=== PATIENT | male | born 1970 | race African-American/Black ===

== ENCOUNTER 2025-01-31 07:38 | Inpatient (IN) | payer BC ==
[2025-01-31] MEDS ORDERED: ACETAMINOPHEN INJECTION 100 ML ONE (08:32)
[2025-01-31] MEDS: ACETAMINOPHEN 1000 MG/100 ML BAG IVPB ONE (08:40)
[2025-01-31 08:55] LABS: ABSOLUTE IMMATURE GRANULOCYTES 0.05 x10^3/uL (0.0-0.031); BASOPHILS # 0.04 x10^3/uL (0.01-0.08); EOSINOPHIL % 0.0 % (0.8-7.0); EOSINOPHILS # 0.00 x10^3/uL (0.04-0.54); MCHC 35.6 g/dl (32.3-36.5); MEAN CELL VOLUME 88.5 fl (79.0-92.2); MEAN PLT VOLUME 9.9 fl (9.4-12.4); MONOCYTE # 1.59 x10^3/uL (0.30-0.82); MONOCYTE % 12.4 % (5.3-12.2); RDW 16.7 % (12.2-16.1)
[2025-01-31 09:03] LABS: INR 1.28 (0.83-1.09); PROTHROMBIN TIME (PATIENT) 14.0 SEC (9.7-13.0)
[2025-01-31 09:05] LABS: ACTIVATED PTT 29.4 SECONDS (25.2-36.5)
[2025-01-31 09:40] LABS: GLUCOSE,RANDOM 124.0 mg/dL (74-106)
[2025-01-31] MEDS ORDERED: FUROSEMIDE 40 MG TABLET (FP) ONE (09:40)
[2025-01-31 09:41] LABS: CO2 24.0 mmol/L (21-32)
[2025-01-31] MEDS ORDERED: SACUBITRIL/VALSARTAN 24 MG-26 MG TABLET ONE (09:41)
[2025-01-31 09:43] LABS: ALK PHOS 73.0 U/L (40-150)
[2025-01-31] MEDS: FUROSEMIDE 40 MG TABLET (FP) PO ONE (09:45)
[2025-01-31] MEDS: SACUBITRIL/VALSARTAN 24 MG-26 MG TABLET PO ONE (09:45)
[2025-01-31 09:46] LABS: CREATININE 0.85 mg/dL (0.55-1.3); SGOT/AST 15.0 U/L (5-34); SGPT/ALT 10.0 U/L (0-55)
[2025-01-31] MEDS ORDERED: KETOROLAC TROMETHAMINE 15 MG/ML VIAL ONE (09:53)
[2025-01-31] MEDS: KETOROLAC TROMETHAMINE 30 MG/1 ML VIAL IVPUSH ONE (09:55)
[2025-01-31 10:48] LABS: TOT PROT 6.4 g/dl (6.4-8.2)
[2025-01-31 10:52] LABS: URINE APPEARANCE CLEAR; URINE BILIRUBIN NEGATIVE (NEGATIVE); URINE COLOR DK YELLOW; URINE GLUCOSE (UA) NEGATIVE (NEGATIVE); URINE KETONE NEGATIVE (NEGATIVE); URINE LEUK ESTERASE TRACE (NEGATIVE); URINE NITRITE NEGATIVE (NEGATIVE); URINE PROTEIN TRACE (NEGATIVE); URINE UROBILINOGEN 1.0 mg/dL (0.2-1.0)
[2025-01-31 10:58] LABS: N-TERMINAL BNP 5667.4 pg/mL (0-299.9)
[2025-01-31] MEDS ORDERED: CEFEPIME HCL 2 GM VIAL (RESTRICTED TO ID) IVPB ONE (11:12)
[2025-01-31] MEDS ORDERED: CEFEPIME HCL/D5W 2 GM/50 ML BAG IVPB ONE (11:39)
[2025-01-31] MEDS: CEFEPIME 2 GM in DEXTROSE 5%-WATER 100 ML IVPB ONE (11:48)
[2025-01-31] MEDS: VANCOMYCIN PREMIX 1.75 GM 1,750 MG/350 ML PIGGYBACK IVPB ONE (14:08)
[2025-01-31 17:10] VITALS: BMI 29.4
[2025-01-31] MEDS: PIPERACILLIN/TAZOB 3.375 GM 3.375 GM in DEXTROSE 5%-WATER - 50 ML IVPB SCH (18:18)
[2025-01-31] MEDS ORDERED: PIPERACILLIN/TAZOB 3.375 GM 3.375 GM in DEXTROSE 5%-WATER - 50 ML IVPB SCH (20:00)
[2025-01-31] MEDS: SACUBITRIL/VALSARTAN 24 MG-26 MG TABLET PO SCH (21:11)
[2025-01-31] MEDS: DOXYCYCLINE INJECTION 100 MG in DEXTROSE 5%-WATER 100 ML IVPB SCH (21:11)
[2025-01-31] MEDS: FLUTICASONE PROP 0.05% 16 GM NASAL SPRAY NS PRN (22:19)
[2025-02-01 00:37] LABS: HCV DIAGNOSTIC IN-HOUSE W/RFLX NON-REACTIVE (NONREACTIVE); HEPATITIS B SURF AG NON-MATERN NON-REACTIVE (NONREACTIVE)
[2025-02-01 08:35] LABS: ABSOLUTE IMMATURE GRANULOCYTES 0.05 x10^3/uL (0.0-0.031); BASOPHILS # 0.05 x10^3/uL (0.01-0.08); EOSINOPHIL % 0.2 % (0.8-7.0); EOSINOPHILS # 0.02 x10^3/uL (0.04-0.54); MCHC 36.5 g/dl (32.3-36.5); MEAN CELL VOLUME 87.1 fl (79.0-92.2); MEAN PLT VOLUME 10.9 fl (9.4-12.4); MONOCYTE # 1.66 x10^3/uL (0.30-0.82); MONOCYTE % 12.9 % (5.3-12.2); RDW 16.1 % (12.2-16.1)
[2025-02-01] MEDS ORDERED: KETOROLAC TROMETHAMINE 15 MG/ML VIAL IVPUSH PRN (08:39)
[2025-02-01] MEDS: ACETAMINOPHEN 1000 MG/100 ML BAG IVPB PRN (08:49)
[2025-02-01 08:57] LABS: TOT PROT 5.6 g/dl (6.4-8.2)
[2025-02-01 09:00] LABS: ALK PHOS 64.0 U/L (40-150)
[2025-02-01 09:03] LABS: SGOT/AST 12.0 U/L (5-34); SGPT/ALT 8.0 U/L (0-55)
[2025-02-01 09:04] LABS: GLUCOSE,RANDOM 91.0 mg/dL (74-106)
[2025-02-01 09:06] LABS: CO2 23.0 mmol/L (21-32)
[2025-02-01 09:10] LABS: CREATININE 0.87 mg/dL (0.55-1.3)
[2025-02-01] MEDS: ENOXAPARIN NA (PORCINE) 40 MG/0.4 ML DISP.SYRIN SQ SCH (09:31)
[2025-02-01] MEDS: FUROSEMIDE 40 MG TABLET (FP) PO SCH (09:32)
[2025-02-01] MEDS: LIDOCAINE 4% PATCH TP SCH (11:45)
[2025-02-01] MEDS: LIDOCAINE PATCH REMOVAL MC SCH (21:03)
[2025-02-02 09:18] LABS: ABSOLUTE IMMATURE GRANULOCYTES 0.03 x10^3/uL (0.0-0.031); BASOPHILS # 0.04 x10^3/uL (0.01-0.08); EOSINOPHIL % 1.0 % (0.8-7.0); EOSINOPHILS # 0.09 x10^3/uL (0.04-0.54); MCHC 36.7 g/dl (32.3-36.5); MEAN CELL VOLUME 88.4 fl (79.0-92.2); MEAN PLT VOLUME 10.6 fl (9.4-12.4); MONOCYTE # 1.13 x10^3/uL (0.30-0.82); MONOCYTE % 11.9 % (5.3-12.2); RDW 16.3 % (12.2-16.1)
[2025-02-02 09:42] LABS: GLUCOSE,RANDOM 90.0 mg/dL (74-106); TOT PROT 5.6 g/dl (6.4-8.2)
[2025-02-02 09:43] LABS: CO2 25.0 mmol/L (21-32)
[2025-02-02 09:45] LABS: ALK PHOS 60.0 U/L (40-150)
[2025-02-02 09:48] LABS: CREATININE 0.89 mg/dL (0.55-1.3); SGOT/AST 11.0 U/L (5-34); SGPT/ALT 8.0 U/L (0-55)
[2025-02-02 13:55] VITALS: BP 117/76; PULSE 66; RESP 18; TEMP 98.6
== END 2025-02-02 15:55 | disposition home or self-care (01) | DRG 194 ==
LOC: JER 07:38 → JERBED 11:19 → J6S 14:34
PROVIDERS: ADMIT Internal Medicine; ATTEND Internal Medicine
DX: J18.9 Pneumonia, unspecified organism (principal); I50.22 Chronic systolic (congestive) heart failure; I11.0 Hypertensive heart disease with heart failure; I25.10 Atherosclerotic heart disease of native coronary artery without angina pectoris; E80.6 Other disorders of bilirubin metabolism; J43.9 Emphysema, unspecified; D64.9 Anemia, unspecified; F17.210 Nicotine dependence, cigarettes, uncomplicated
CPT/HCPCS: 36415; 71046-TC-FY; 71250-TC; 74176-TC; 76705-TC; 80048; 80053; 80076; 81003; 82248; 83735; 83880; 84100; 84484; 85025; 85610; 85730; 86704; 86803; 86850; 86900; 86901; 87086; 87340; 87517; 87899; 93005; 93010; 99285-25; J3373